=== PATIENT | female | born 1955 | race Caucasian/White ===

== ENCOUNTER 2021-02-12 07:30 | Inpatient (IN) ==
[2021-02-26] MEDS ORDERED: Lactated Ringers 1000 ml BAG 1,000 ML IV SCH ×2 (06:00→11:00)
[2021-02-26] MEDS ORDERED: Buffered Lidocaine 1% SYRIN 1 ml INTRADERM ONE (06:00)
[2021-02-26] MEDS ORDERED: Midazolam 2 mg/2 ml VIAL 1 mg/ml 2 ml VIAL (2 mg) ONE (07:00)
[2021-02-26] MEDS ORDERED: Propofol 10 MG/ML 20 ML BTL ONE ×2 (07:01→10:18)
[2021-02-26] MEDS ORDERED: Ondansetron 4 mg VIAL 2 MG/ML 2 ml VIAL ONE (07:01)
[2021-02-26] MEDS ORDERED: Lidocaine 2% PF 5 ML VIAL ONE (07:01)
[2021-02-26] MEDS ORDERED: Glycopyrrolate IV 0.2 MG/ML 1 ML VIAL ONE (07:01)
[2021-02-26] MEDS ORDERED: Phenylephrine IV 10 MG/ML 1 ml VIAL ONE (07:01)
[2021-02-26] MEDS ORDERED: ceFAZolin 2 GM PREMIX 2 GM/50 ML BAG ONE (07:11)
[2021-02-26] MEDS ORDERED: ROPIVACAINE 5 MG/ML 30 ML BTL (0.5%) ONE (07:21)
[2021-02-26] MEDS ORDERED: ceFAZolin 2 GM in NS PREMIX 2 GM/100 ML BAG IVPB ONE (07:36)
[2021-02-26] MEDS ORDERED: Naloxone 0.4 mg VIAL 0.4 mg/ml 1 ml VIAL IV PRN (07:45)
[2021-02-26] MEDS ORDERED: diPHENhydraMINE IV 50 MG/ML 1 ml VIAL (BENADRYL) IV PRN ×2 (07:45→10:37)
[2021-02-26] MEDS ORDERED: Prochlorperazine 5 mg/ml 2 ml VIAL (10 mg) IV PRN (07:45)
[2021-02-26] MEDS ORDERED: Ondansetron 4 mg VIAL 2 MG/ML 2 ml VIAL IV PRN ×2 (07:51→10:37)
[2021-02-26 08:12] LABS: INR 0.96 (0.82-1.09)
[2021-02-26] MEDS ORDERED: fentaNYL 100 mcg/2 ml 50 MCG/ML VIAL ONE (10:08)
[2021-02-26] MEDS ORDERED: Magnesium Hydroxide LIQ 30 ML UDC PO PRN (10:37)
[2021-02-26] MEDS ORDERED: diPHENhydraMINE 25 mg TAB PO PRN (10:37)
[2021-02-26] MEDS ORDERED: Lactulose 30 ml UDC PO PRN (10:37)
[2021-02-26] MEDS ORDERED: Ondansetron ODT 4 mg TAB 4 MG TAB PO PRN (10:37)
[2021-02-26] MEDS ORDERED: HYDROmorphone 1 MG/1 ML SYRINGE ONE (10:46)
[2021-02-26] MEDS: HYDROmorphone 1 MG/1 ML SYRINGE IV PRN ×2 (10:49→11:06)
[2021-02-26] MEDS ORDERED: Polyethyl Glycol/Propylene Gly OPHTH.SOLN BOTH EYES PRN (14:11)
[2021-02-26] MEDS: ceFAZolin 1 GM ADVAN 1 GM in NS 0.9% 50 ML 50 ML IVPB SCH (16:00)
[2021-02-26] MEDS: Magnesium Hydroxide LIQ 30 ML UDC PO SCH (20:56)
[2021-02-27] MEDS: ceFAZolin 1 GM ADVAN 1 GM in NS 0.9% 50 ML 50 ML IVPB SCH ×2 (00:49→09:02)
[2021-02-27 05:18] LABS: Hematocrit 34 % (35-47); Hemoglobin 11.2 g/dL (12.0-16.0); Mean Platelet Volume 9.1 fL (7.4-10.4); Platelet Count 183 10^3/uL (150-450)
[2021-02-27 05:34] LABS: Calcium 8.7 mg/dL (8.6-10.3); EGFR African American 108.8 (>60); EGFR Non-African American 89.9 (>60); Potassium 3.8 mmol/L (3.5-5.0)
[2021-02-27] MEDS: Magnesium Hydroxide LIQ 30 ML UDC PO SCH (08:49)
[2021-02-27] MEDS ORDERED: Metronidazole (TOPICAL)(NF) 45 GM TUBE TOPICAL SCH (09:00)
[2021-02-27] MEDS ORDERED: Vitamin THERAPEUTIC TAB PO SCH (09:00)
[2021-02-27 11:33] VITALS: BP 112/93
== END 2021-02-27 12:17 | disposition home or self-care (01) | DRG 470 ==
LOC: AA 02-26 09:22 → INTOOBSV 02-26 09:22 → SSU 02-26 12:03
PROVIDERS: ADMIT Orthopaedic Surgery Adult Reconstructive Orthopaedic Surgery; ATTEND Orthopaedic Surgery Adult Reconstructive Orthopaedic Surgery

== ENCOUNTER 2022-02-23 07:30 | Inpatient (IN) ==
[2022-06-24] MEDS ORDERED: Lactated Ringers 1000 ml BAG 1,000 ML IV SCH (06:00)
[2022-06-24] MEDS ORDERED: Buffered Lidocaine 1% SYRIN 1 ml INTRADERM ONE ×2 (06:00→06:29)
[2022-06-24] MEDS ORDERED: ceFAZolin 2 GM in NS PREMIX 2 GM/100 ML BAG IVPB ONE (06:29)
[2022-06-24] MEDS ORDERED: fentaNYL 100 mcg/2 ml 50 MCG/ML VIAL ONE (06:32)
[2022-06-24] MEDS ORDERED: Phenylephrine IV 10 MG/ML 1 ml VIAL ONE (06:32)
[2022-06-24] MEDS ORDERED: Lidocaine 2% PF 5 ML VIAL ONE (06:32)
[2022-06-24] MEDS ORDERED: Propofol 10 MG/ML 20 ML BTL ONE (06:32)
[2022-06-24] MEDS ORDERED: Midazolam 2 mg/2 ml VIAL 1 mg/ml 2 ml VIAL (2 mg) ONE (06:32)
[2022-06-24] MEDS ORDERED: Bupivacaine 0.5% PF 10 ML SDV VIAL INJ ONE (06:32)
[2022-06-24] MEDS ORDERED: Dexamethasone IV 4 MG/ML VIAL 1 ml VIAL ONE (07:54)
[2022-06-24] MEDS ORDERED: Ondansetron 4 mg VIAL 2 MG/ML 2 ml VIAL ONE (07:54)
[2022-06-24] MEDS ORDERED: Acetaminophen IV 1 GM/100ML 1,000 MG/100 ML BAG IV ONE (07:54)
[2022-06-24] MEDS ORDERED: Acetaminophen IV 1 GM/100ML 1,000 MG/100 ML BAG IV PRN (08:23)
[2022-06-24] MEDS ORDERED: Naloxone 0.4 mg VIAL 0.4 mg/ml 1 ml VIAL IV PRN (08:23)
[2022-06-24] MEDS ORDERED: fentaNYL 100 mcg/2 ml 50 MCG/ML VIAL IV PRN (08:23)
[2022-06-24] MEDS ORDERED: HYDROmorphone 1 MG/1 ML SYRINGE IV PRN (08:23)
[2022-06-24] MEDS ORDERED: Ondansetron 4 mg VIAL 2 MG/ML 2 ml VIAL IV PRN ×2 (08:23→09:14)
[2022-06-24] MEDS ORDERED: Lactulose 30 ml UDC PO PRN (09:14)
[2022-06-24] MEDS ORDERED: Morphine 2 MG/ML SYRINGE IV PRN (09:14)
[2022-06-24] MEDS ORDERED: Magnesium Hydroxide LIQ 30 ML UDC PO PRN (09:14)
[2022-06-24] MEDS ORDERED: Ondansetron ODT 4 mg TAB 4 MG TAB PO PRN (09:14)
[2022-06-24] MEDS: ceFAZolin 1 GM ADVAN 1 GM in NS 0.9% 50 ML 50 ML IVPB SCH (15:07)
[2022-06-24] MEDS: Lactated Ringers 1000 ml BAG 1,000 ML IV SCH ×2 (15:09→22:48)
[2022-06-24] MEDS: Magnesium Hydroxide LIQ 30 ML UDC PO SCH (20:45)
[2022-06-25] MEDS: ceFAZolin 1 GM ADVAN 1 GM in NS 0.9% 50 ML 50 ML IVPB SCH ×2 (00:10→07:42)
[2022-06-25 06:49] LABS: Hematocrit 37 % (35-47); Hemoglobin 12.7 g/dL (12.0-16.0); Mean Platelet Volume 9.6 fL (7.4-10.4); Platelet Count 209 10^3/uL (150-450)
[2022-06-25 07:01] LABS: Calcium 9.2 mg/dL (8.6-10.3); Potassium 4.1 mmol/L (3.5-5.0); eGFR CKD-EPI 100.8 (>60)
[2022-06-25] MEDS: Magnesium Hydroxide LIQ 30 ML UDC PO SCH (07:46)
[2022-06-25 08:10] VITALS: BP 112/72
[2022-06-25] MEDS ORDERED: Vitamin THERAPEUTIC TAB PO SCH (09:00)
== END 2022-06-25 12:17 | disposition home or self-care (01) | DRG 470 ==
LOC: AA 06-24 05:50 → SSU 06-24 09:14
PROVIDERS: ADMIT Orthopaedic Surgery Adult Reconstructive Orthopaedic Surgery; ATTEND Orthopaedic Surgery Adult Reconstructive Orthopaedic Surgery